=== PATIENT | female | born 1950 | race Caucasian/White ===

== ENCOUNTER 2023-11-15 13:22 | Emergency (ER) | payer MEDICARE ==
[2023-11-15 13:39] VITALS: BP 191/83; PULSE 68; RESP 20; TEMP 97.8
[2023-11-15] MEDS ORDERED: TOPICAL SKIN ADHESIVE 1 EACH AMP TOPICAL ONE (13:49)
--- NOTE | 2023-11-15 14:06 | ED ---
Fall HPI - General Chief Complaint: Wound/Laceration Stated Complaint: Fall, Hit Head w/Forehead Lac Time Seen by Provider: 11/15/23 13:41 Source: patient, RN notes reviewed, old records reviewed Mode of arrival: ambulatory Limitations: no limitations - History of Present Illness Initial Comments: This is a 73-year-old female to the emergency department for fall from standing fall hitting her head with facial laceration. Minimal bleeding no loss of consciousness mild headache currently. No neck pain. No other complaints no recent history of headache chest pain stress breath abdominal pain. No blood thinners MD Complaint: fall -: hour(s) Fall From: standing When Fall Occurred: 1 hour [employer]IL [employer] Fall Witnessed: no Place Fall Occurred: home Loss of Consciousness: none Prolonged Down Time?: no Symptoms Prior to Fall: none Location: head, face Severity: mild Severity scale (1-10): 2 Context: tripped/slipped Associated Symptoms: denies - Related Data Allergies Allergy/AdvReac Type Severity Reaction Status Date / Time No Known Allergies Allergy Verified 11/15/23 13:30 Review of Systems ROS Statement: Those systems with pertinent positive or pertinent negative responses have been documented in the HPI. ROS Other: All systems not noted in ROS Statement are negative. Past Medical History Additional Past Medical History / Comment(s): Tremors History of Any Multi-Drug Resistant Organisms: None Reported Past Surgical History: No Surgical Hx Reported Past Psychological History: No Psychological Hx Reported Smoking Status: Never smoker Past Alcohol Use History: Occasional Past Drug Use History: None Reported General Exam Limitations: no limitations General appearance: alert, in no apparent distress Head exam: Present: normocephalic, normal inspection. Absent: atraumatic (Face laceration3 centimeters) Eye exam: Present: normal appearance, PERRL, EOMI. Absent: scleral icterus, conjunctival injection, periorbital swelling ENT exam: Present: normal exam, mucous membranes moist Neck exam: Present: normal inspection. Absent: tenderness, meningismus, lymphadenopathy Respiratory exam: Present: normal lung sounds bilaterally. Absent: respiratory distress, wheezes, rales, rhonchi, stridor Cardiovascular Exam: Present: regular rate, normal rhythm, normal heart sounds. Absent: systolic murmur, diastolic murmur, rubs, gallop, clicks GI/Abdominal exam: Present: soft, normal bowel sounds. Absent: distended, tenderness, guarding, rebound, rigid Extremities exam: Present: normal inspection, full ROM, normal capillary refill. Absent: tenderness, pedal edema, joint swelling, calf tenderness Back exam: Present: normal inspection Neurological exam: Present: alert, oriented X3, CN II-XII intact Psychiatric exam: Present: normal affect, normal mood Skin exam: Present: warm, dry, intact, normal color. Absent: rash Course Vital Signs 11/15/23 13:28 Temperature 97.8 F Pulse Rate 68 Respiratory 20 Rate Blood Pressure 191/83 O2 Sat by Pulse 99 Oximetry - Reevaluation(s) Reevaluation #1: Medical records reviewed Reevaluation #2: Patient symptoms improved Reevaluation #3: Patient informed results questions answered Reevaluation #4: Was pt. sent in by a medical professional or institution (LAVERN Ray, FRONT COUNTER ATTENDANT, urgent care, hospital, or correction...) When possible be specific @ -no Did you speak to anyone other than the patient for history (EMS, parent, family, police, friend...)? What history was obtained from this source @ -no Did you review nursing and triage notes (agree or disagree)? Why? @ -agree Are old charts reviewed (outside hosp., previous admission, EMS record, old EKG, old radiological studies, urgent care reports/EKG's, correction records)? Report findings @ -yes Differential Diagnosis (chest pain, altered mental status, abdominal pain women, abdominal pain men, vaginal bleeding, weakness, fever, dyspnea, syncope, headache, dizziness, GI bleed, back pain, seizure, CVA, palpatations, mental health, musculoskeletal)? @ -prior EKG interpreted by me (3pts min.). @ -yes X-rays interpreted by me (1pt min.). @ -yes CT interpreted by me (1pt min.). @ -no U/S interpreted by me (1pt. min.). @ -no What testing was considered but not performed or refused? (CT, X-rays, U/S, labs)? Why? @ -none What meds were considered but not given or refused? Why? @ -none Did you discuss the management of the patient with other professionals (professionals i.e. LAVERN Ray, FRONT COUNTER ATTENDANT, lab, RT, psych nurse, social insurance analyst, support teacher, teacher, personnel officer, field nurse case manager)? Give summary @ -no Was smoking cessation discussed for >3mins.? @ -no Was critical care preformed (if so, how long)? @ -no Were there social determinants of health that impacted care today? How? (Homelessness, low income, unemployed, alcoholism, drug addiction, transportation, low edu. Level, literacy, decrease access to med. care, residential, rehab)? @ -none Was there de-escalation of care discussed even if they declined (Discuss DNR or withdrawal of care, Hospice)? DNR status @ -no What co-morbidities impacted this encounter? (DM, HTN, Smoking, COPD, CAD, Cancer, CVA, ARF, Chemo, Hep., AIDS, mental health diagnosis, sleep apnea, morbid obesity)? @ -none Was patient admitted / discharged? Hospital course, mention meds given and route, prescriptions, significant lab abnormalities, going to OR and other pertinent info. @ - 73 female to the emergency department for evaluation of fall with facial laceration. Laceration is repaired here in the ER no triadic injury noted from the fall patient can be discharged home Discharge Undiagnosed new problem with uncertain prognosis? @ -no Drug Therapy requiring intensive monitoring for toxicity (Heparin, Nitro, Insulin, Cardizem)? @ -no Were any procedures done? @ -Laceration repair Diagnosis/symptom? @ -Facial laceration and fall Acute, or Chronic, or Acute on Chronic? @ -Acute Uncomplicated (without systemic symptoms) or Complicated (systemic symptoms)? @ -Complicated Side effects of treatment? @ -no Exacerbation, Progression, or Severe Exacerbation? @ -exacerbation Poses a threat to life or bodily function? How? (Chest pain, [place], [place], pneumonia, PE, COPD, DKA, ARF, appy, cholecystitis, CVA, Diverticulitis, Homicidal, Suicidal, threat to staff... and all critical care pts) @ -yes fall with head injury Reevaluation #5: Differential Headache: Migraine, tension, cluster, carbon monoxide, central venous thrombosis, pension karma temporal arteritis, acute closure glaucoma, intercranial hemorrhage, mastoiditis, sinusitis, head injury, this is not meant to be an all-inclusive list. Procedures - Laceration Laceration #1 Consent Obtained: verbal consent Indication: laceration Site: face Size (cm): 3 Description: linear Depth: simple, single layer Anesthetic Used: lidocaine 1%, with epi Type of Sutures: nylon Size of Sutures: 6-0 Technique: running Patient Tolerated Procedure: well Medical Decision Making - Medical Decision Making 73 female to the emergency department for evaluation of fall with facial laceration. Laceration is repaired here in the ER no triadic injury noted from the fall patient can be discharged home - Radiology Data Radiology results: report reviewed (CT brain and facial bones negative for acute disease), image reviewed Disposition Clinical Impression: Laceration, Laceration of head, Head injury Disposition: HOME SELF-CARE Condition: Good Instructions (If sedation given, give patient instructions): Laceration (ED) Is patient prescribed a controlled substance at d/c from ED?: No Referrals: Nonstaff,Physician [Primary Care Provider] - 1-2 days Time of Disposition: 14:00
--- NOTE | 2023-11-15 15:53 | CT ---
EXAMINATION TYPE: CT brain cspine wo con CT DLP: 973 mGycm, Automated exposure control for dose reduction was used. DATE OF EXAM: 11/15/2023 2:25 PM COMPARISON: None. CLINICAL INDICATION:Female, 73 years old with history of fall; Fall TECHNIQUE: Brain: Multiple axial CT images of the brain were obtained without IV contrast. Cspine: Axial CT images from the skull base to the inferior aspect of T2 we obtained without intraven ous contrast. Coronal and sagittal reformatted images were also reviewed. FINDINGS: Brain: Extra-axial spaces: No abnormal extra-axial fluid collections. Ventricular system: Within normal limits. Cerebral parenchyma: No increased attenuation to suggest acute intraparenchymal hemorrhage. The gra y-white matter interface appears maintained. No significant atrophy for age. White matter grossly u nremarkable by CT. 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 Cerebellum: No acute abnormality. Mass effect: No evidence of mass effect or midline shift. Intracranial vasculature: Atherosclerotic calcifications of the larger arteries near the skull base. Soft tissues: Normal. Visualized orbits: Orbital contents appear grossly intact. There has likely been previous lens surg debby on the left. Calvarium/osseous structures: No evidence of calvarial fracture. Paranasal sinuses and mastoid air cells: Clear MRI is more sensitive for detecting acute processes such as infarct, and may be considered if clinica lly warranted. Cervical spine: Fracture: None seen. Osseous structures, spinal canal/neural foramina: Generalized osteopenia. Status post ACDF with anter ior plate and screws and prosthetic disc interspace material extending from C5 C6 C7, with near-compl ete interbody fusion at these levels. Mild/moderate multilevel degenerative disc disease and facet ar throsis. Vertebral alignment: No traumatic malalignment. Straightening of the normal cervical lordosis, can be seen with degenerative changes, pain, positioning, muscular spasm. Trace anterolisthesis C4 on C5 a ppears degenerative. Neck soft tissues: No acute finding.. Calcifications noted involving the cervical carotid arteries bi furcation regions, brachiocephalic artery, proximal left subclavian artery, origin of the right verte bral artery. Other: Lung apices show mild scarring/senescent changes, no acute infiltrate or pneumothorax. IMPRESSION: CT head: 1. No acute intracranial CT abnormality. CT cervical spine: 1. No evidence of cervical spine fracture or traumatic malalignment. 2. Mild/moderate cervical spondylosis.
--- NOTE | 2023-11-15 16:00 | CT ---
EXAMINATION TYPE: CT facial bones wo con CT DLP: 973 mGycm, Automated exposure control for dose reduction was used. DATE OF EXAM: 11/15/2023 2:26 PM COMPARISON: . CLINICAL INDICATION:Female, 73 years old with history of fall; PHH, Fall TECHNIQUE: Multiple unenhanced axial CT images were obtained of the facial bones soft tissue and bone windows. Coronal, axial and sagittal reformatted images were also provided in soft tissue and bone windows and submitted for interpretation. Additional 3-D reformatted images were obtained on a [employer] workstation. FINDINGS: Mandible appears intact and the temporomandibular joints are not dislocated. There are mild degenerat alex changes at the TMJ joints. Slight anterior translation of the condyles at the TMJs, likely due to position. No fracture of the nasal bones or remainder of the facial bones identified. The anterior n osmel spine is intact. Unremarkable zygomatic arches. Unremarkable pterygoid plates. There is extensiv e dental work present. There is no significant fluid accumulation seen in the visualized paranasal sinuses. Mastoid air cell s are clear. Orbits show no evidence of fracture and the orbital contents appear intact. There has likely been nicolás or lens surgery on the left. No concerning soft tissue abnormality is identified. IMPRESSION: No evidence of acute facial bone fracture.
== END 2023-11-15 15:52 | disposition home or self-care (01) ==
LOC: EC 13:22
DX: S01.81XA Laceration without foreign body of other part of head, initial encounter (principal); W18.30XA Fall on same level, unspecified, initial encounter; Y92.009 Unspecified place in unspecified non-institutional (private) residence as the place of occurrence of the external cause
CPT/HCPCS: 12013; 70450; 70486; 72125; 99283